=== PATIENT | female | born 1950 | race Caucasian/White ===

== ENCOUNTER 2020-09-28 09:45 | Observation (INO) | payer MEDICARE, BC ==
[2020-09-28] MEDS ORDERED: Ticagrelor 90 MG Tab PO ONE (09:50)
[2020-09-28] MEDS ORDERED: Famotidine 20 MG/2 ML SDV IVPUSH ONE (09:50)
[2020-09-28] MEDS ORDERED: Metoprolol Tartrate 5 MG/5 ML SDV IVPUSH ONE ×2 (09:50→10:35)
[2020-09-28] MEDS ORDERED: Aspirin 81 MG Tab.Chew CHEW ONE (09:50)
[2020-09-28] MEDS ORDERED: Sodium Chloride 0.9% 10 ML Syringe FLUSH PRN ×2 (09:50→11:42)
--- NOTE | 2020-09-28 09:50 | EDM.PDOC ---
ED HPI GENERAL MEDICAL PROBLEM - General Chief Complaint: Cardiovascular Problem Stated Complaint: chest pressure, irregular fast heart beat Time Seen by Provider: 09/28/20 09:50 Source of Information: Reports: Patient, Family (), Old Records ([facility] chart/EMR), Other ([facility]MR) History Limitations: Reports: No Limitations - History of Present Illness INITIAL COMMENTS - FREE TEXT/NARRATIVE: The patient was brought to the emergency room via private automobile by her for evaluation of 4/10 retrosternal chest pressure without radiation ass ociated with moderate heart flutter with symptoms starting at about 7:30 AM at rest this morning. She did take her morning medications including her Toprol- XL, however no other treatment prior to arrival. The patient denies any dizziness, orthostasis, orthopnea, diaphoresis, paresthesias, recent decreased exercise tolerance, or any other anginal-type symptoms. She has had problems with intermittent heart flutter in the past without evaluation at that time. No recent history of abdominal pain, heartburn, nausea, diarrhea, melena, gross hematochezia, or any food intolerance, including fatty foods, etc. with normal bowel movement this morning. She denies any gross hematuria, colic, or other UTI symptoms. The patient also denies any recent fever, cough, wheezing, dyspnea, etc... No recent history of decongestants, significant caffeine intake, etc., although she did take some Mucinex last night. Onset: Today, Sudden Onset Date: 09/28/20 Onset Time: 07:30 Duration: Constant Location: Reports: Chest. Denies: Head, Face, Neck, Abdomen, Back, Pelvis, Upper Extremity, Left, Upper Extremity, Right, Radiates to Quality: Reports: Pressure, Same as Previous Episode Severity: Mild Improves with: Reports: None Worsens with: Reports: None Context: Reports: Other (As above). Denies: Sick Contact, Trauma Associated Symptoms: Reports: Chest Pain. Denies: Confusion, Cough, Diaphoresis, Fever/Chills, Headaches, Loss of Appetite, Malaise, Nausea/Vomiting, Rash, Seizure, Shortness of Breath, Syncope, Weakness Treatments CENTRIFUGAL SCREEN TENDER: Reports: Other (see below) (As above) Middle Anterior Chest Pain Score (Numeric/FACES): 4 Left Upper Chest Pain Score (Numeric/FACES): 4 - Related Data Allergies Allergy/AdvReac Type Severity Reaction Status Date / Time No Known Allergies Allergy Verified 09/28/20 09:45 Home Meds: Home Meds Metoprolol Succinate [Toprol XL] 75 mg PO DAILY 02/20/14 [History] Mv,Calcium,Min/Iron/Folic/Vitk [Multi For Her Tablet] 1 each PO DAILY 02/20/14 [History] Cholecalciferol (Vitamin D3) [Vitamin D3] 1,000 units PO DAILY 06/18/16 [History] L.acidoph,Paracasei, B.lactis [Probiotic] 2 cap PO DAILY 06/18/16 [History] atorvaSTATin [Lipitor] 10 mg PO BEDTIME 06/18/16 [History] Lisinopril [Prinivil] 10 mg PO DAILY 06/19/16 [History] Calcium Carbonate [Calcium] 1,200 mg PO DAILY 07/27/18 [History] Exemestane 25 mg PO DAILY 09/28/20 [History] Past Medical History HEENT History: Reports: Allergic Rhinitis, Cataract, Impaired Vision, Other (See Below). Denies: Glaucoma, Hard of Hearing, Macular Degeneration, Otitis Media, Retinal Detachment Other HEENT History: Patient wears glasses. Seasonal allergies. Cardiovascular History: Reports: Arrhythmia, Heart Murmur, High Cholesterol, Hypertension. Denies: Afib, Aneurysm, Blood Clots/VTE/DVT, CAD, Cardiomyopathy, Heart Failure, AL, PVD, Syncope Other Cardiovascular History: Vasomotor instability. History of possible sinus tachycardia versus other type of arrhythmia on 02/20/2014. Intermittent benign functional cardiac murmur. Respiratory History: Reports: Bronchitis, Recurrent, Intubation, Previous, Pulmonary Fibrosis. Denies: Asthma, COPD, Intubation, Difficult, PE, Pneumonia, Recurrent, Pneumothorax, TB Gastrointestinal History: Reports: Colon Polyp, Other (See Below). Denies: Celiac Disease, Cholelithiasis, Chronic Constipation, Chronic Diarrhea, Diverticulosis, Fatty Liver, Fecal Incontinence, Gastritis, GERD, GI Bleed, Hepatitis, Hiatal Hernia, Inflammatory Bowel Disease, Irritable Bowel Syndrome, Jaundice, Pancreatitis, PUD Other Gastrointestinal History: Benign rectal hyperplastic colonic polyp in 2016 as below. Genitourinary History: Reports: None. Denies: Chronic Renal Insuffiency, Renal Calculus, Retention, Urinary, STD, Urinary Incontinence, UTI, Recurrent RUBBER PRESS TENDER History: Reports: Other (See Below) : 1 Para: 1 LMP (Approximate): Other (See Below) Other RUBBER PRESS TENDER History: Menopause at about age 54. Full term without complications during pregnancies or deliveries. Benign right ovarian cyst by pelvic ultrasound in October 2019 as below. Musculoskeletal History: Reports: Back Pain, Chronic, Neck Pain, Chronic, Osteoarthritis, Osteoporosis. Denies: Amputation, Arthritis, Fracture, Gout, RA, SLE Neurological History: Reports: Neuropathy, Peripheral, Other (See Below). Denies: Alzheimers Disease, Cerebral Aneurysms, Concussion, CVA, Headaches, Chronic, Head Trauma, Migraines, MS, Parkinson's, Seizure, TIA, Vertigo Other Neuro History: Possible peripheral neuropathy secondary to her medications. Psychiatric History: Reports: Anxiety, Depression. Denies: Abuse, Victim of, ADD, ADHD, Addiction, Psych Hospitalization(s), PTSD, Suicide Attempt, Suicidal Ideation Endocrine/Metabolic History: Reports: Obesity/BMI 30+, Osteopenia. Denies: Diabetes, Gestational, Diabetes, Type I, Diabetes, Type II, Diabetes Mellitus, Type 3c, Hypothyroidism, IDDM Hematologic History: Reports: None. Denies: Anemia, Blood Transfusion(s) Immunologic History: Reports: None. Denies: AIDS, HIV, SLE Oncologic (Cancer) History: Reports: Breast, Other (See Below). Denies: Basal Cell Carcinoma, Colon, Hodgkin's Lymphoma, Leukemia, Lymphoma, Malignant Melanoma, Non-Hodgkin's Lymphoma, Ovarian, Squamous Cell Carcinoma, Uterine Other Oncologic History: Right-sided estrogen positive breast cancer in 2018 with history of lumpectomy and radiation therapy as below. Dermatologic History: Reports: None. Denies: Eczema, Psoriasis - Infectious Disease History Infectious Disease History: Reports: Chicken Pox, Measles. Denies: C-Difficile, Meningitis, Mononucleosis, MRSA, Mumps, Novel Coronavirus, Pertussis (Whooping Cough), Rheumatic Fever, Rubella, Scarlet Fever, Shingles, TB, VRE - Past Surgical History Head Surgeries/Procedures: Reports: None HEENT Surgical History: Reports: Cataract Surgery, Oral Surgery, Other (See Below). Denies: Adenoidectomy, Detached Retina, Eye Surgery, Laser Surgery, LASIK, Myringotomy w Tube(s), Naso-Sinus Surgery, Tonsillectomy Other HEENT Surgeries/Procedures: Bilateral cataract surgery in 2018. [place] teeth extraction x2 in her 30s. Cardiovascular Surgical History: Reports: None. Denies: Varicose Respiratory Surgical History: Reports: None. Denies: Thoracentesis GI Surgical History: Reports: Colonoscopy, Polypectomy, Other (See Below). Denies: Appendectomy, Cholecystectomy, EGD, Hernia, Abdominal, Hernia, Inguinal, Hernia Repair/Other Other GI Surgeries/Procedures: Colonoscopy with polypectomy on 06/19/2016. Female Surgical History: Reports: Breast Biopsy, Other (See Below). Denies: Breast Reconstruction, Section, D&C, Hysterectomy (No other female tubal ligation hysterectomy), Salpingo-Oophorectomy, Tubal Ligation Other Female Surgeries/Procedures: Right breast lumpectomy with axillary dissection secondary to breast cancer in 2018 as below. Endocrine Surgical History: Reports: None. Denies: Thyroid Biopsy Neurological Surgical History: Reports: None. Denies: C-Spine, Discectomy, Laminectomy, Lumbar Spine, Sacral Spine, Spinal Fusion, Thoracic Spine, Vertebroplasty Musculoskeletal Surgical History: Reports: None. Denies: Arthroscopic Procedure, Carpal Tunnel, Ganglion Cyst, Joint Replacement, ORIF, Shoulder Surgery Oncologic Surgical History: Reports: Biopsy of Breast, Lumpectomy, Other (See Below) Other Oncologic Surgeries/Procedures: Right breast biopsy on 02/17/2018 with subsequent lumpectomy and sentinel node biopsies on 02/17/2018 and repeat lumpectomy on 03/03/2018. Dermatological Surgical History: Reports: Skin Biopsy, Other (See Below) Other Dermatological Surgeries/Procedures: Excision of benign cyst from the scalp on 09/25/2000. - Past Imaging History Past Imaging History: Reports: CAT Scan (CT of the abdomen and pelvis with IV contrast on 09/21/2019.), DEXA Scan (Last on 04/13/2020.), Mammogram (Last on 04/13/2020.), MRI (Left knee on 07/28/2018.), Ultrasound (Pelvic ultrasound on 05/28/2020, 11/28/2019, and 10/11/2019. Right breast ultrasound on 01/21/2018 and 11/03/2012.) Social & Family History - Family History HEENT: Reports: Cataract, Other (See Below). Denies: Glaucoma, Macular Degeneration, Retinal Detachment Other HEENT Family History: Mother with cataracts. Cardiac: Reports: Afib, Arrhythmia, Cardiomyopathy, Heart Failure, High Cholesterol, Hypertension, Syncope, Other (See Below). Denies: Aneurysm, Blood Clots/VTE/DVT, CAD, Heart Murmur, AL, PVD/COD Other Cardiac Family History: Father with possible atrial fibrillation with Coumadin therapy, cardiomegaly and CHF with subsequent fatal syncopal episode/? CVA at age 88. Maternal grandfather with unknown type of cardiac arrhythmia. Mother with hypertension and hyperlipidemia. Respiratory: Reports: COPD, Other (See Below). Denies: Asthma, PE, Pneumothorax, Sleep Apnea Other Respiratory Family Hisory: Father with history of COPD and tobacco use. GI: Reports: None. Denies: Celiac Disease, Cholelithiasis, Colon Polyps, GERD, GI bleed, Inflammatory Bowel Disease, Irritable Bowel Syndrome, PUD : Reports: Renal Disease/Insufficiency, Other (See Below). Denies: Dialysis, Renal Calculus Other Family History: Mother with history of renal failure. OBGYN: Reports: None. Denies: Dysfunctional uterine bleeding, Endometriosis, Fibroids, Recurrent Spontaneous Musculoskeletal: Reports: Arthritis, Gout, Other (See Below). Denies: RA, SLE Other Musculoskeletal Family History: Father with history of gout. Neurological: Reports: Alzheimers Disease, CVA, Dementia, Other (See Below) Other Neurological Family History: Mother with possible beginning organic brain syndrome. Patient denies previous history of CVA in her maternal grandfather although he did have a history of an unknown brain tumor. Dad with possible fatal CVA as above. Psychiatric: Reports: Anxiety, Depression, Suicide Attempt, Other (See Below). Denies: Abuse, Victim of, ADD, ADHD, Psych Hospitalization(s), PTSD Other Psychiatric Family History: Maternal grand niece with successful suicide in her 40s and nieces son with successful suicide in his 20s. Maternal grandfather from successful suicide in his 70s rather than fatal CVA as per medical records. Endocrine/Metabolic: Reports: Diabetes, type II, Other (See Below). Denies: Diabetes, Type I, Hypothyroidism, IDDM Other Endocrine/Metabolic Family History: Father with diabetes mellitus. Patient denies history of diabetes in her maternal aunt despite medical records. Hematologic: Reports: None. Denies: Anemia, SLE Immunologic: Reports: None. Denies: AIDS, HIV, SLE Dermatologic: Reports: None. Denies: Eczema, Psoriasis Oncologic: Reports: Brain, Breast, Skin, Other (See Below). Denies: Colon, Hodgkin's Lymphoma, Lung, Lymphoma, Metastatic, Non-Hodgkin's Lymphoma, Ovarian Other Oncologic Family History: Mother with unknown type of facial skin cancer. Mother with breast cancer at age 72. Maternal grandfather with unknown type of brain cancer as above. - Tobacco Use Tobacco Use Status *Q: Never Tobacco User Tobacco Use Within Last Twelve Months: No Used Tobacco, but Quit: No Smoking Cessation Information Provided To Patient: No Second Hand Smoke Exposure: No Second Hand Smoke Education Provided: No - Caffeine Use Caffeine Use: Reports: Coffee (3 cups/day), Tea (2 cups/week). Denies: Energy Drinks, Soda - Alcohol Use Alcohol Use History: Yes Days Per Week of Alcohol Use: 0 Number of Drinks Per Day: 1 Number of Drinks Per Day Comment: Usually wine for holidays. No previous DWIs, problems with alcohol abuse, etc.. 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 ED EXAM, GENERAL - Physical Exam Exam: See Below Exam Limited By: No Limitations General Appearance: Alert, No Apparent Distress Eye Exam: Bilateral Eye: EOMI, Normal Inspection (No nystagmus or vertigo. Patient is wearing glasses.), PERRL Ears: Normal External Exam, Normal Canal, Hearing Grossly Normal, Normal TMs Nose: Normal Inspection, Normal Mucosa, No Blood Throat/Mouth: Normal Inspection, Normal Lips, Normal Teeth, Normal Gums, Normal Oropharynx, Normal Voice, No Airway Compromise. No: Dysphagia, Inflammation, Perioral Cyanosis Head: Atraumatic, Normocephalic. No: Facial Swelling, Facial Tenderness, Sinus Tenderness Neck: Supple, Non-Tender, Full Range of Motion, Carotid Bruit (Mild bilateral carotid bruits). No: Lymphadenopathy (L), Lymphadenopathy (R), Thyromegaly Respiratory/Chest: No Respiratory Distress, No Accessory Muscle Use, Chest Non- Tender, Rales (Mild bilateral basal rales). No: Rhonchi, Wheezing, Pleural Rub, Retractions Cardiovascular: Normal Peripheral Pulses, No Edema, No Gallop, No JVD, No Murmur, No Rub, Tachycardia, Irregularly Irregular. No: Gallop/S3, Gallop/S4 Peripheral Pulses: 2+: Radial (L), Radial (R), Dorsalis Pedis (L), Dorsalis Pedis (R) GI/Abdominal: Normal Bowel Sounds, Soft, Non-Tender, No Organomegaly, No Distention, No Abnormal Bruit, No Mass, Other (Obese). No: Guarding (Female) Exam: Deferred Rectal (Female) Exam: Deferred Back Exam: Normal Inspection, Full Range of Motion. No: CVA Tenderness (L), CVA Tenderness (R), Muscle Spasm Extremities: Normal Inspection, Normal Range of Motion, Non-Tender, No Pedal Edema, Normal Capillary Refill. No: Gato's Sign Neurological: Alert, Oriented, CN II-XII Intact, Normal Cognition, Normal Gait, Normal Reflexes (Negative Babinski's), No Motor/Sensory Deficits Psychiatric: Normal Affect, Normal Mood Skin Exam: Warm, Dry, Intact, Normal Color, No Rash, Other (2 cm in length cystic lesion over her superior occipital region with no evidence of infection). No: Diaphoretic, Pallor Lymphatic: No Adenopathy #1 Interpretation EKG Date: 09/28/20 Time: 09:54 Rhythm: A-Flutter (With occasional couplets and uniform PVCs) Rate (Beats/Min): 226 [place]: Normal (Left) P-Wave: Variable QRS: Normal (0.09 seconds) ST-T: Normal QT: Normal NE/PQ Interval: Not applicable Comparison: Change From Previous EKG (New PVCs, couplets, and atrial flutter with rapid ventricular response since last EKG on 12/06/2009) EKG Interpretation Comments: 1. No acute ischemic changes 2. Atrial fibrillation/flutter with rapid ventricular response 3. PVCs, couplets #2 Interpretation EKG Date: 09/28/20 Time: 10:39 Rhythm: A-Fib Rate (Beats/Min): 128 [place]: Normal (Left) P-Wave: Variable QRS: Normal (0.08 seconds) ST-T: Normal QT: Normal NE/PQ Interval: Variable Comparison: Change From Previous EKG (Improved tachycardia since earlier EKG this morning as above) EKG Interpretation Comments: 1. No acute ischemic changes 2. Atrial fibrillation with rapid ventricular responseimproved Course - Vital Signs Last Recorded V/S: Last Vital Signs Temp 36.8 C 09/28/20 09:45 Pulse 90 09/28/20 10:47 Resp 18 09/28/20 10:27 BP 113/73 09/28/20 10:47 Pulse Ox 96 09/28/20 10:27 Vital Signs - 24 hr 09/28/20 09/28/20 09/28/20 09:45 09:50 10:00 Temperature [ 36.8 C Temporal] Pulse, Peripheral Pulse, 183 H 180 H 157 H Peripheral [ Left Pulse Oximetry] Respiratory 22 H 22 H 20 Rate Blood Pressure Blood Pressure 187/112 H 139/80 116/82 [Right Upper Arm] O2 Sat by Pulse 95 95 95 Oximetry 09/28/20 09/28/20 09/28/20 10:13 10:17 10:27 Temperature [ Temporal] Pulse, 146 H 145 H Peripheral Pulse, 147 H 148 H Peripheral [ Left Pulse Oximetry] Respiratory 16 18 Rate Blood Pressure 94/70 Blood Pressure 115/77 111/92 H [Right Upper Arm] O2 Sat by Pulse 96 96 Oximetry 09/28/20 09/28/20 09/28/20 10:37 10:42 10:47 Temperature [ Temporal] Pulse, 147 H 90 Peripheral Pulse, 93 Peripheral [ Left Pulse Oximetry] Respiratory 18 Rate Blood Pressure 111/92 H 113/73 Blood Pressure 121/76 [Right Upper Arm] O2 Sat by Pulse 96 Oximetry 09/28/20 10:57 Temperature [ Temporal] Pulse, Peripheral Pulse, 93 Peripheral [ Left Pulse Oximetry] Respiratory 18 Rate Blood Pressure Blood Pressure 127/77 [Right Upper Arm] O2 Sat by Pulse 96 Oximetry - Orders/Labs/Meds Orders: Active Orders 24 hr Category Date Time Status Cardiac Monitoring [RC] . DIRECTED Care 09/28/20 09:50 Active EKG Documentation Completion [RC] ASDIRECTED Care 09/28/20 09:50 Active EKG Documentation Completion [RC] ASDIRECTED Care 09/28/20 10:17 Ordered Oxygen Therapy, ED [RC] CONTINUOUS Care 09/28/20 09:50 Active Peripheral IV Care [RC] . DIRECTED Care 09/28/20 09:50 Active Pulse Oximetry [RC] PRN Care 09/28/20 09:50 Active Up With Assistance [RC] PFP Care 09/28/20 09:50 Active Vital Signs [RC] PFP Care 09/28/20 09:50 Active Nothing per Oral Now Diet [DIET] Diet 09/28/20 Breakfast Active Chest 1V Frontal [CR] Stat Exams 09/28/20 09:50 Ordered Sodium Chloride 0.9% [Saline Flush] Med 09/28/20 09:50 Active 10 ml FLUSH ASDIRECTED PRN Obtain Past Medical Record [OM.PC] Urgent Oth 09/28/20 09:50 Active Peripheral IV Insertion Adult [OM.PC] Stat Oth 09/28/20 09:50 Ordered Resuscitation Status Stat Resus Stat 09/28/20 09:50 Ordered Medication Orders Sodium Chloride (Saline Flush) 10 ml FLUSH ASDIRECTED PRN PRN Reason: Keep Vein Open Labs: Laboratory Tests 09/28/20 09/28/20 09/28/20 Range/Units 09:45 09:45 09:45 WBC 10.7 H (4.0-10.2) K/uL RBC 4.56 (3.77-5.09) M/uL Hgb 13.9 (11.7-15.5) g/dL Hct 42.1 (34.0-46.0) % MCV 92.3 (84.0-98.0) fL MCH 30.5 (28.2-33.3) pg MCHC 33.0 (31.7-36.0) g/dL RDW 14.4 H (11.2-14.1) % Plt Count 352 H (150-350) K/uL Neut % (Auto) 56.6 (45.0-80.0) % Lymph % (Auto) 29.9 (10.0-50.0) % [place] % (Auto) 10.7 (2.0-14.0) % Eos % (Auto) 2.6 (0.0-5.0) % Baso % (Auto) 0.2 (0.0-2.0) % Neut # (Auto) 6.06 (1.40-7.00) K/uL Lymph # (Auto) 3.20 (0.50-3.50) K/uL [place] # (Auto) 1.14 H (0.00-1.00) K/uL Eos # (Auto) 0.28 (0.00-0.50) K/uL Baso # (Auto) 0.02 (0.00-0.20) K/uL PT 9.8 (9.5-12.0) SEC INR 1.0 APTT 23.4 L (24.5-32.8) SEC D-Dimer, Quantitative 1070 H (0-400) ng/mL Sodium (136-145) mmol/L Potassium (3.5-5.1) mmol/L Chloride (98-107) mmol/L Carbon Dioxide (21.0-32.0) mmol/L BUN (7-18) mg/dL Creatinine (0.51-1.17) mg/dL Est Cr Clr Drug Dosing Estimated GFR (MDRD) mL/min Glucose (74-106) mg/dL Lactic Acid (0.4-2.0) mmol/L Uric Acid (2.6-7.2) mg/dL Calcium (8.5-10.1) mg/dL Magnesium (1.8-2.4) mg/dL Total Bilirubin (0.2-1.0) mg/dL AST (15-37) U/L ALT (12-78) U/L Alkaline Phosphatase (46-116) IU/L Creatine Kinase (26-308) U/L Creatine Kinase Index (0.0-2.5) % CK-MB (CK-2) (0.00-3.60) ng/mL Troponin I (0.000-0.056) ng/mL NT-Pro-B Natriuret Pep (0-125) pg/mL Total Protein (6.4-8.2) g/dL Albumin (3.4-5.0) g/dL TSH, Ultra Sensitive (0.358-3.740) mIU/mL 09/28/20 09/28/20 Range/Units 09:45 09:45 WBC (4.0-10.2) K/uL RBC (3.77-5.09) M/uL Hgb (11.7-15.5) g/dL Hct (34.0-46.0) % MCV (84.0-98.0) fL MCH (28.2-33.3) pg MCHC (31.7-36.0) g/dL RDW (11.2-14.1) % Plt Count (150-350) K/uL Neut % (Auto) (45.0-80.0) % Lymph % (Auto) (10.0-50.0) % [place] % (Auto) (2.0-14.0) % Eos % (Auto) (0.0-5.0) % Baso % (Auto) (0.0-2.0) % Neut # (Auto) (1.40-7.00) K/uL Lymph # (Auto) (0.50-3.50) K/uL [place] # (Auto) (0.00-1.00) K/uL Eos # (Auto) (0.00-0.50) K/uL Baso # (Auto) (0.00-0.20) K/uL PT (9.5-12.0) SEC INR APTT (24.5-32.8) SEC D-Dimer, Quantitative (0-400) ng/mL Sodium 138 (136-145) mmol/L Potassium 4.0 (3.5-5.1) mmol/L Chloride 100 (98-107) mmol/L Carbon Dioxide 23.6 (21.0-32.0) mmol/L BUN 27 H (7-18) mg/dL Creatinine 0.93 (0.51-1.17) mg/dL Est Cr Clr Drug Dosing TNP Estimated GFR (MDRD) 59 mL/min Glucose 187 H (74-106) mg/dL Lactic Acid 3.5 H (0.4-2.0) mmol/L Uric Acid 7.1 (2.6-7.2) mg/dL Calcium 9.6 (8.5-10.1) mg/dL Magnesium 2.0 (1.8-2.4) mg/dL Total Bilirubin 0.4 (0.2-1.0) mg/dL AST 18 (15-37) U/L ALT 29 (12-78) U/L Alkaline Phosphatase 107 (46-116) IU/L Creatine Kinase 93 (26-308) U/L Creatine Kinase Index 1.0 (0.0-2.5) % CK-MB (CK-2) 0.90 (0.00-3.60) ng/mL Troponin I 0.000 (0.000-0.056) ng/mL NT-Pro-B Natriuret Pep 114 (0-125) pg/mL Total Protein 8.1 (6.4-8.2) g/dL Albumin 3.7 (3.4-5.0) g/dL TSH, Ultra Sensitive 2.084 (0.358-3.740) mIU/mL Meds: Medications Generic Name Dose Route Start Last Admin Trade Name Freq PRN Reason Stop Dose Admin Sodium Chloride 10 ml 09/28/20 09:50 Saline Flush FLUSH ASDIRECTED PRN Keep Vein Open Discontinued Medications Generic Name Dose Route Start Last Admin Trade Name Freq PRN Reason Stop Dose Admin Adenosine 6 mg 09/28/20 09:51 09/28/20 09:54 Adenocard IVPUSH 09/28/20 09:52 6 mg NOW ONE Administration Adenosine 12 mg 09/28/20 09:56 09/28/20 09:58 Adenocard IVPUSH 09/28/20 09:57 12 mg NOW ONE Administration Aspirin 324 mg 09/28/20 09:50 09/28/20 10:01 Aspirin CHEW 09/28/20 09:51 324 mg ONETIME ONE Administration Digoxin 250 mcg 09/28/20 10:24 09/28/20 10:27 Lanoxin IVPUSH 09/28/20 10:25 250 mcg ONETIME ONE Administration Diltiazem HCl 20 mg 09/28/20 09:59 09/28/20 10:02 Diltiazem IVPUSH 09/28/20 10:00 20 mg ONETIME ONE Administration Famotidine 40 mg 09/28/20 09:50 09/28/20 10:07 Pepcid IVPUSH 09/28/20 09:51 40 mg ONETIME ONE Administration Metoprolol Tartrate 2.5 mg 09/28/20 09:50 09/28/20 10:17 Lopressor IVPUSH 09/28/20 09:51 2.5 mg ONETIME ONE Administration Metoprolol Tartrate 2.5 mg 09/28/20 10:35 09/28/20 10:37 Lopressor IVPUSH 09/28/20 10:36 2.5 mg ONETIME ONE Administration Metoprolol Tartrate 25 mg 09/28/20 10:43 09/28/20 10:47 Lopressor PO 09/28/20 10:44 25 mg ONETIME ONE Administration Ticagrelor 180 mg 09/28/20 09:50 09/28/20 10:06 Brilinta PO 09/28/20 09:51 180 mg ONETIME ONE Administration - Radiology Interpretation Free Text/Narrative:: environmental monitoring specialist showed initial atrial fibrillation/flutter with heart rate in the 150s to 220s with occasional PVCs and couplets initially refractory to therapy with subsequent conversion to sinus rhythm with heart rate in the 80s to 90s prior to admission. Chest x-ray, portable, shows probable mild COPD and pulmonary fibrotic changes with bilateral lower lobe atelectasis. Mild cardiomegaly and aortic valve calcification, however no evidence of CHF, pulmonary infiltrates, pneumothorax, etc. Departure - Departure Time of Disposition: 11:35 Disposition: Refer to Observation Condition: Good Clinical Impression: Atrial fibrillation and flutter, PVCs (premature ventricular contractions), Mixed anxiety depressive disorder, Hyperglycemia, D-dimer, elevated, Elevated lactic acid level Hypertension Qualifiers: Hypertension type: essential hypertension Qualified Code(s): I10 - Essential (primary) hypertension Hyperlipidemia Qualifiers: Hyperlipidemia type: unspecified Qualified Code(s): E78.5 - Hyperlipidemia, unspecified Osteoarthritis Qualifiers: Osteoarthritis location: multiple joints Osteoarthritis type: primary Qualified Code(s): M89.49 - Other hypertrophic osteoarthropathy, multiple sites Leukocytosis Qualifiers: Leukocytosis type: bandemia Qualified Code(s): D72.825 - Bandemia Sepsis Event Note (ED) - Focused Exam Vital Signs: Vital Signs Temp Pulse Pulse Resp BP BP Pulse Ox 09/28/20 10:47 90 113/73 09/28/20 10:37 147 H 111/92 H 09/28/20 10:27 145 H 148 H 18 111/92 H 96 09/28/20 10:17 146 H 94/70 09/28/20 10:13 147 H 16 115/77 96 09/28/20 10:00 157 H 20 116/82 95 09/28/20 09:50 180 H 22 H 139/80 95 09/28/20 09:45 36.8 C 183 H 22 H 187/112 H 95 - Problem List & Annotations (1) Atrial fibrillation and flutter SNOMED Code(s): 007728353 Code(s): I48.91 - UNSPECIFIED ATRIAL FIBRILLATION; I48.92 - UNSPECIFIED ATRIAL FLUTTER Status: Acute Priority: High Current Visit: Yes Onset Date: 09/28/20 Annotation/Comment:: Significantly refractory atrial fibrillation/flutter despite patient taking 75 mg of Toprol-XL earlier this morning. Note aggressive treatment with IV adenosine, IV diltiazem, IV Lopressor, and IV digoxin with eventual conversion to normal sinus rhythm. Chest pain likely secondary to her atrial fibrillation/flutter, however chest pain protocol was initiated immediately upon patient's arrival to this facility. No chest pain at time of admission. Note D-dimer elevation as below. Patient does have a history of distant sinus tachycardia, however has been having recurrent episodes of heart flutter, including 2 episodes in the past year without physician evaluation at that time. Initiate standard rule out AL orders. Echocardiogram to be conducted on an outpatient basis in this facility next week with consideration of Cardiolite stress test with me in this facility also next week. Cardiology consultation depending on her clinical course. Secondary to D-dimer elevation patient will be given the VTE dose of subcu Lovenox on admission, however delaying initiation of Eliquis for now until echocardiogram results can be obtained as above. Further medication adjustments during this hospitalization, including initiation of additional oral diltiazem later this afternoon. Continue to observe her blood pressures closely with somewhat low blood pressures in the emergency room, which were not symptomatic. (2) D-dimer, elevated SNOMED Code(s): 232511508 Code(s): R79.89 - OTHER SPECIFIED ABNORMAL FINDINGS OF BLOOD CHEMISTRY Status: Acute Priority: High Current Visit: Yes Onset Date: 09/28/20 Annotation/Comment:: CTA of the chest is to be conducted shortly after admission with venous Doppler studies of the lower extremities later this afternoon. No direct clinical evidence of DVT or PE. Subcu Lovenox will be initiated as above. (3) Elevated lactic acid level SNOMED Code(s): 0733944 Code(s): R79.89 - OTHER SPECIFIED ABNORMAL FINDINGS OF BLOOD CHEMISTRY Status: Acute Priority: High Current Visit: Yes Onset Date: 09/28/20 Annotation/Comment:: Only minimal leukocytosis likely secondary to stress reaction with no fever or evidence of infection. Patient started on a 1 L IV b olus of lactated Ringer's. Blood cultures and antibiotic therapy are not initiated at this time. Lactic acid level will be repeated with next set of cardiac enzymes. No clinical evidence of sepsis. (4) Hyperglycemia SNOMED Code(s): 31576059 Code(s): R73.9 - HYPERGLYCEMIA, UNSPECIFIED Status: Acute Priority: Medium Current Visit: Yes Onset Date: 09/28/20 Annotation/Comment:: Nonfasting hyperglycemia this morning this patient having already had breakfast. Glycosylated hemoglobin in the a.m. with no previous history of diabetes (5) Hyperlipidemia SNOMED Code(s): 70008547 Code(s): E78.5 - HYPERLIPIDEMIA, UNSPECIFIED Status: Chronic Priority: Medium Current Visit: Yes Annotation/Comment:: Currently under therapy. Weight loss in moderation is advisable. Lipid panel in the a.m. Qualifiers: Hyperlipidemia type: unspecified Qualified Code(s): E78.5 - Hyperlipidemia, unspecified (6) Hypertension SNOMED Code(s): 73339227 Code(s): I10 - ESSENTIAL (PRIMARY) HYPERTENSION Status: Chronic Priority: Medium Current Visit: Yes Annotation/Comment:: As above Qualifiers: Hypertension type: essential hypertension Qualified Code(s): I10 - Essential (primary) hypertension (7) Leukocytosis SNOMED Code(s): 846592809, 864183525 Code(s): D72.829 - ELEVATED WHITE BLOOD CELL COUNT, UNSPECIFIED Status: Acute Priority: Medium Current Visit: Yes Onset Date: 09/28/20 Annotation/Comment:: As above Qualifiers: Leukocytosis type: bandemia Qualified Code(s): D72.825 - Bandemia (8) Mixed anxiety depressive disorder SNOMED Code(s): 766313075 Code(s): F41.8 - OTHER SPECIFIED ANXIETY DISORDERS Status: Chronic Priority: Medium Current Visit: Yes Annotation/Comment:: Stable by patient history (9) Osteoarthritis SNOMED Code(s): 453386995 Code(s): M19.90 - UNSPECIFIED OSTEOARTHRITIS, UNSPECIFIED SITE Status: Chronic Priority: Medium Current Visit: Yes Annotation/Comment:: Stable by patient history. Qualifiers: Osteoarthritis location: multiple joints Osteoarthritis type: primary Qualified Code(s): M89.49 - Other hypertrophic osteoarthropathy, multiple sites (10) PVCs (premature ventricular contractions) SNOMED Code(s): 55003502 Code(s): I49.3 - VENTRICULAR PREMATURE DEPOLARIZATION Status: Acute Priority: High Current Visit: Yes Onset Date: 09/28/20 Annotation/Comment:: Occasional couplets with mostly uniform PVCs initially, however no evidence of recurrence after conversion to normal sinus rhythm. Continue to observe closely. Consider event monitor depending on her clinical course. - Problem List Review Problem List Initiated/Reviewed/Updated: Yes - My Orders Last 24 Hours: My Active Orders 09/28/20 Breakfast Nothing per Oral Now Diet [DIET] 09/28/20 09:50 Cardiac Monitoring [RC] . DIRECTED EKG Documentation Completion [RC] ASDIRECTED Oxygen Therapy, ED [RC] CONTINUOUS Peripheral IV Care [RC] . DIRECTED Pulse Oximetry [RC] PRN Up With Assistance [RC] PFP Vital Signs [RC] PFP Chest 1V Frontal [CR] Stat Sodium Chloride 0.9% [Saline Flush] 10 ml FLUSH ASDIRECTED PRN Obtain Past Medical Record [OM.PC] Urgent Peripheral IV Insertion Adult [OM.PC] Stat Resuscitation Status Stat 09/28/20 10:17 EKG Documentation Completion [RC] ASDIRECTED - Assessment/Plan Admission H&P: Please use this note as an admission H&P Last 24 Hours: My Active Orders 09/28/20 Breakfast Nothing per Oral Now Diet [DIET] 09/28/20 09:50 Cardiac Monitoring [RC] . DIRECTED EKG Documentation Completion [RC] ASDIRECTED Oxygen Therapy, ED [RC] CONTINUOUS Peripheral IV Care [RC] . DIRECTED Pulse Oximetry [RC] PRN Up With Assistance [RC] PFP Vital Signs [RC] PFP Chest 1V Frontal [CR] Stat Sodium Chloride 0.9% [Saline Flush] 10 ml FLUSH ASDIRECTED PRN Obtain Past Medical Record [OM.PC] Urgent Peripheral IV Insertion Adult [OM.PC] Stat Resuscitation Status Stat 09/28/20 10:17 EKG Documentation Completion [RC] ASDIRECTED Assessment:: As above. Plan: As above. Extensive precautions were given to the patient and her , who are in agreement with the treatment plan. The patient's condition is stable enough for observation status and general supervision. [facility] physician assumes care in the a.m.
[2020-09-28] MEDS ORDERED: Adenosine 6 MG/2 ML SDV IVPUSH ONE ×2 (09:51→09:56)
[2020-09-28] MEDS ORDERED: Diltiazem 25 MG/5 ML SDV IVPUSH ONE (09:59)
[2020-09-28 10:14] LABS: PTT,PARTIAL THROMBOPLSTIN TIME 23.4 SEC (24.5-32.8)
[2020-09-28] MEDS ORDERED: Digoxin 500 MCG/2 ML Amp IVPUSH ONE (10:24)
[2020-09-28] MEDS ORDERED: Metoprolol Tartrate 50 MG Tab PO ONE (10:43)
[2020-09-28 10:50] LABS: CHLORIDE,CL 100 mmol/L (98-107); SODIUM,NA 138 mmol/L (136-145)
[2020-09-28] MEDS ORDERED: Lactated Ringers 1,000 ML IV ONE (11:25)
[2020-09-28] MEDS ORDERED: Temazepam 15 MG Cap PO PRN (11:42)
[2020-09-28] MEDS ORDERED: Iopamidol 755 Mg/ML 100 ML Bottle IVPUSH STA (11:44)
[2020-09-28] MEDS ORDERED: Iopamidol 755 Mg/ML 100 ML Bottle ONE (11:52)
[2020-09-28] MEDS ORDERED: Acetaminophen 325 MG Tab PO PRN (12:00)
[2020-09-28] MEDS: Enoxaparin 100 MG/1 ML Syringe SUBCUT SCH (14:13)
[2020-09-28] MEDS: Lactated Ringers 1,000 ML IV SCH (18:31)
[2020-09-28] MEDS: atorvaSTATin 10 MG Tab PO SCH (19:47)
[2020-09-29] MEDS: Lactated Ringers 1,000 ML IV SCH (04:09)
[2020-09-29] MEDS: Calcium Carbonate 750 MG Tab.Chew PO SCH (07:42)
[2020-09-29] MEDS: Lisinopril 10 MG Tab PO SCH (07:43)
[2020-09-29] MEDS: Cholecalciferol (Vitamin D3) 25 MCG Tab PO SCH (07:44)
[2020-09-29] MEDS: Metoprolol Succinate 50 MG Tab.ER PO SCH (07:44)
[2020-09-29 08:21] LABS: HEMOGLOBIN A1C 6.6 % (4.3-5.7)
[2020-09-29 08:31] LABS: CHLORIDE,CL 102 mmol/L (98-107); SODIUM,NA 139 mmol/L (136-145)
[2020-09-29] MEDS: EXEMESTANE 25 MG PO SCH (08:48)
[2020-09-29] MEDS ORDERED: Mineral Oil/Petrolatum/Phenylephrine/Shark Liver Oil Oint 57 GM Tube RECTAL PRN (09:16)
[2020-09-29] MEDS: Enoxaparin 100 MG/1 ML Syringe SUBCUT SCH (11:59)
[2020-09-29] MEDS ORDERED: Metoprolol Succinate 25 MG Tab.ER PO ONE (13:21)
--- NOTE | 2020-09-29 14:03 | PCM.PN ---
- General Info Date of Service: 09/29/20 Admission Dx/Problem (Free Text): Afib/RVR Subjective Update: Patient feels good today. No new complaints. No chest discomfort/palpitations Functional Status: Reports: Pain Controlled, Tolerating Diet, Ambulating, Urinating. Denies: New Symptoms - Review of Systems General: Reports: No Symptoms HEENT: Reports: No Symptoms Pulmonary: Reports: No Symptoms Cardiovascular: Reports: No Symptoms Gastrointestinal: Reports: No Symptoms Genitourinary: Reports: No Symptoms Musculoskeletal: Reports: Other (no acute changes from baseline) Skin: Reports: No Symptoms Neurological: Reports: No Symptoms Psychiatric: Reports: No Symptoms - Patient Data Vitals - Most Recent: Last Vital Signs Temp 36.7 C 09/29/20 12:00 Pulse 90 09/29/20 12:00 Resp 20 09/29/20 12:00 BP 167/80 H 09/29/20 12:00 Pulse Ox 95 09/29/20 12:00 Weight - Most Recent: 90.265 kg I&O - Last 24 Hours: Intake & Output 09/28/20 09/29/20 09/29/20 22:59 06:59 14:59 Intake Total 472 1540 Output Total 3730 691 1887 Balance -953 -250 240 Lab Results Last 24 Hours: Laboratory Results - last 24 hr 09/28/20 09/28/20 09/28/20 Range/Units 13:53 13:53 19:40 WBC (4.0-10.2) K/uL RBC (3.77-5.09) M/uL Hgb (11.7-15.5) g/dL Hct (34.0-46.0) % MCV (84.0-98.0) fL MCH (28.2-33.3) pg MCHC (31.7-36.0) g/dL RDW (11.2-14.1) % Plt Count (150-350) K/uL Neut % (Auto) (45.0-80.0) % Lymph % (Auto) (10.0-50.0) % [place] % (Auto) (2.0-14.0) % Eos % (Auto) (0.0-5.0) % Baso % (Auto) (0.0-2.0) % Neut # (Auto) (1.40-7.00) K/uL Lymph # (Auto) (0.50-3.50) K/uL [place] # (Auto) (0.00-1.00) K/uL Eos # (Auto) (0.00-0.50) K/uL Baso # (Auto) (0.00-0.20) K/uL D-Dimer, Quantitative (0-400) ng/mL Sodium (136-145) mmol/L Potassium (3.5-5.1) mmol/L Chloride (98-107) mmol/L Carbon Dioxide (21.0-32.0) mmol/L BUN (7-18) mg/dL Creatinine (0.51-1.17) mg/dL Est Cr Clr Drug Dosing mL/min Estimated GFR (MDRD) mL/min Glucose (74-106) mg/dL Hemoglobin A1c (4.3-5.7) % Lactic Acid 2.1 H (0.4-2.0) mmol/L Calcium (8.5-10.1) mg/dL Total Bilirubin (0.2-1.0) mg/dL AST (15-37) U/L ALT (12-78) U/L Alkaline Phosphatase (46-116) IU/L Creatine Kinase 86 90 (26-308) U/L Creatine Kinase Index 0.9 0.8 (0.0-2.5) % CK-MB (CK-2) 0.80 0.70 (0.00-3.60) ng/mL Troponin I 0.011 0.007 (0.000-0.056) ng/mL NT-Pro-B Natriuret Pep (0-125) pg/mL Total Protein (6.4-8.2) g/dL Albumin (3.4-5.0) g/dL Triglycerides (30-150) mg/dL Cholesterol (100-200) mg/dL LDL Cholesterol, Calc (0-100) mg/dL HDL Cholesterol (40-60) mg/dL 09/28/20 09/29/20 09/29/20 Range/Units 19:40 07:30 07:30 WBC 10.7 H (4.0-10.2) K/uL RBC 4.34 (3.77-5.09) M/uL Hgb 13.2 (11.7-15.5) g/dL Hct 40.3 (34.0-46.0) % MCV 92.9 (84.0-98.0) fL MCH 30.4 (28.2-33.3) pg MCHC 32.8 (31.7-36.0) g/dL RDW 14.3 H (11.2-14.1) % Plt Count 328 (150-350) K/uL Neut % (Auto) 74.5 (45.0-80.0) % Lymph % (Auto) 16.5 (10.0-50.0) % [place] % (Auto) 7.7 (2.0-14.0) % Eos % (Auto) 0.9 (0.0-5.0) % Baso % (Auto) 0.4 (0.0-2.0) % Neut # (Auto) 7.99 H (1.40-7.00) K/uL Lymph # (Auto) 1.77 (0.50-3.50) K/uL [place] # (Auto) 0.83 (0.00-1.00) K/uL Eos # (Auto) 0.10 (0.00-0.50) K/uL Baso # (Auto) 0.04 (0.00-0.20) K/uL D-Dimer, Quantitative 196 (0-400) ng/mL Sodium (136-145) mmol/L Potassium (3.5-5.1) mmol/L Chloride (98-107) mmol/L Carbon Dioxide (21.0-32.0) mmol/L BUN (7-18) mg/dL Creatinine (0.51-1.17) mg/dL Est Cr Clr Drug Dosing mL/min Estimated GFR (MDRD) mL/min Glucose (74-106) mg/dL Hemoglobin A1c (4.3-5.7) % Lactic Acid 2.2 H (0.4-2.0) mmol/L Calcium (8.5-10.1) mg/dL Total Bilirubin (0.2-1.0) mg/dL AST (15-37) U/L ALT (12-78) U/L Alkaline Phosphatase (46-116) IU/L Creatine Kinase (26-308) U/L Creatine Kinase Index (0.0-2.5) % CK-MB (CK-2) (0.00-3.60) ng/mL Troponin I (0.000-0.056) ng/mL NT-Pro-B Natriuret Pep (0-125) pg/mL Total Protein (6.4-8.2) g/dL Albumin (3.4-5.0) g/dL Triglycerides (30-150) mg/dL Cholesterol (100-200) mg/dL LDL Cholesterol, Calc (0-100) mg/dL HDL Cholesterol (40-60) mg/dL 09/29/20 09/29/20 09/29/20 Range/Units 07:30 07:30 07:30 WBC (4.0-10.2) K/uL RBC (3.77-5.09) M/uL Hgb (11.7-15.5) g/dL Hct (34.0-46.0) % MCV (84.0-98.0) fL MCH (28.2-33.3) pg MCHC (31.7-36.0) g/dL RDW (11.2-14.1) % Plt Count (150-350) K/uL Neut % (Auto) (45.0-80.0) % Lymph % (Auto) (10.0-50.0) % [place] % (Auto) (2.0-14.0) % Eos % (Auto) (0.0-5.0) % Baso % (Auto) (0.0-2.0) % Neut # (Auto) (1.40-7.00) K/uL Lymph # (Auto) (0.50-3.50) K/uL [place] # (Auto) (0.00-1.00) K/uL Eos # (Auto) (0.00-0.50) K/uL Baso # (Auto) (0.00-0.20) K/uL D-Dimer, Quantitative (0-400) ng/mL Sodium 139 (136-145) mmol/L Potassium 4.2 (3.5-5.1) mmol/L Chloride 102 (98-107) mmol/L Carbon Dioxide 26.0 (21.0-32.0) mmol/L BUN 16 (7-18) mg/dL Creatinine 0.77 (0.51-1.17) mg/dL Est Cr Clr Drug Dosing 48.13 mL/min Estimated GFR (MDRD) > 60 mL/min Glucose 130 H (74-106) mg/dL Hemoglobin A1c 6.6 H (4.3-5.7) % Lactic Acid 2.9 H (0.4-2.0) mmol/L Calcium 9.2 (8.5-10.1) mg/dL Total Bilirubin 0.5 (0.2-1.0) mg/dL AST 18 (15-37) U/L ALT 26 (12-78) U/L Alkaline Phosphatase 100 (46-116) IU/L Creatine Kinase 117 (26-308) U/L Creatine Kinase Index 0.9 (0.0-2.5) % CK-MB (CK-2) 1.00 (0.00-3.60) ng/mL Troponin I 0.000 (0.000-0.056) ng/mL NT-Pro-B Natriuret Pep 438 H (0-125) pg/mL Total Protein 7.7 (6.4-8.2) g/dL Albumin 3.6 (3.4-5.0) g/dL Triglycerides 121 (30-150) mg/dL Cholesterol 136 (100-200) mg/dL LDL Cholesterol, Calc 65 (0-100) mg/dL HDL Cholesterol 47 (40-60) mg/dL Crista Results Last 24 Hours: Microbiology 09/28/20 12:15 Urine Culture - Preliminary Urine, Clean Catch MIXED POSITIVE HILARY DAY 1 09/28/20 18:42 Stool Occult Blood (CRISTA) - Final Stool / Feces NEGATIVE OCCULT BLOOD REFERENCE RANGE: NEGATIVE Med Orders - Current: Current Medications Acetaminophen (Tylenol) 650 mg PO Q4H PRN PRN Reason: Pain Atorvastatin Calcium (Lipitor) 10 mg PO BEDTIME [facility] Last Admin: 09/28/20 19:47 Dose: 10 mg Documented by: Calcium Carbonate/Glycine (Tums Extra Strength) 1,500 mg PO DAILY [facility] Last Admin: 09/29/20 07:42 Dose: 1,500 mg Documented by: Cholecalciferol (Vitamin D3) 25 mcg PO DAILY [facility] Last Admin: 09/29/20 07:44 Dose: 25 mcg Documented by: Enoxaparin Sodium (Lovenox) 90 mg SUBCUT Q24H [facility] Last Admin: 09/29/20 11:59 Dose: 90 mg Documented by: Lactated Ringer's (Ringers, Lactated) 1,000 mls @ 100 mls/hr IV ASDIRECTED [facility] Last Admin: 09/29/20 04:09 Dose: 100 mls/hr Documented by: Lisinopril (Prinivil) 10 mg PO DAILY [facility] Last Admin: 09/29/20 07:43 Dose: 10 mg Documented by: Metoprolol Succinate (Toprol Xl) 75 mg PO DAILY [facility] Last Admin: 09/29/20 07:44 Dose: 75 mg Documented by: Metoprolol Succinate (Toprol Xl) 25 mg PO DAILY [facility] Exemestane 25 Mg * (*Own Med) 0 mg PO DAILY [facility] Last Admin: 09/29/20 08:48 Dose: 25 mg Documented by: Phenyleph/Shark Oil/Min Oil/Petrol (Preparation H Oint) 0 gm RECTAL ASDIRECTED PRN PRN Reason: Hemorrhoids Last Admin: 09/29/20 09:39 Dose: 1 applic Documented by: Sodium Chloride (Saline Flush) 10 ml FLUSH ASDIRECTED PRN PRN Reason: Keep Vein Open Sodium Chloride (Saline Flush) 10 ml FLUSH Q12HR PRN PRN Reason: Keep Vein Open Temazepam (Restoril) 15 mg PO BEDTIME PRN PRN Reason: Insomnia Discontinued Medications Adenosine (Adenocard) 6 mg IVPUSH NOW ONE Stop: 09/28/20 09:52 Last Admin: 09/28/20 09:54 Dose: 6 mg Documented by: Adenosine (Adenocard) 12 mg IVPUSH NOW ONE Stop: 09/28/20 09:57 Last Admin: 09/28/20 09:58 Dose: 12 mg Documented by: Aspirin (Aspirin) 324 mg CHEW ONETIME ONE Stop: 09/28/20 09:51 Last Admin: 09/28/20 10:01 Dose: 324 mg Documented by: Digoxin (Lanoxin) 250 mcg IVPUSH ONETIME ONE Stop: 09/28/20 10:25 Last Admin: 09/28/20 10:27 Dose: 250 mcg Documented by: Diltiazem HCl (Diltiazem) 20 mg IVPUSH ONETIME ONE Stop: 09/28/20 10:00 Last Admin: 09/28/20 10:02 Dose: 20 mg Documented by: Famotidine (Pepcid) 40 mg IVPUSH ONETIME ONE Stop: 09/28/20 09:51 Last Admin: 09/28/20 10:07 Dose: 40 mg Documented by: Lactated Ringer's (Ringers, Lactated) 1,000 mls @ 999 mls/hr IV .BOLUS ONE Stop: 09/28/20 12:25 Last Admin: 09/28/20 11:29 Dose: 999 mls/hr Documented by: Iopamidol (Isovue-370 (76%)) 100 ml IVPUSH ONETIME STA Stop: 09/28/20 11:45 Last Admin: 09/28/20 12:11 Dose: 100 ml Documented by: Iopamidol (Isovue-370 (76%)) Confirm Administered Dose 100 ml .ROUTE .STK-MED ONE Stop: 09/28/20 11:53 Last Admin: 09/28/20 11:30 Dose: Not Given Documented by: Metoprolol Succinate (Toprol Xl) 25 mg PO ONETIME ONE Stop: 09/29/20 13:22 Metoprolol Tartrate (Lopressor) 2.5 mg IVPUSH ONETIME ONE Stop: 09/28/20 09:51 Last Admin: 09/28/20 10:17 Dose: 2.5 mg Documented by: Metoprolol Tartrate (Lopressor) 2.5 mg IVPUSH ONETIME ONE Stop: 09/28/20 10:36 Last Admin: 09/28/20 10:37 Dose: 2.5 mg Documented by: Metoprolol Tartrate (Lopressor) 25 mg PO ONETIME ONE Stop: 09/28/20 10:44 Last Admin: 09/28/20 10:47 Dose: 25 mg Documented by: Ticagrelor (Brilinta) 180 mg PO ONETIME ONE Stop: 09/28/20 09:51 Last Admin: 09/28/20 10:06 Dose: 180 mg Documented by: - Exam Quality Assessment: DVT Prophylaxis General: Alert, Oriented, Cooperative, No Acute Distress HEENT: Pupils Equal, Pupils Reactive, EOMI, Mucous Membr. Moist/[place] Neck: Supple Lungs: Clear to Auscultation, Normal Respiratory Effort Cardiovascular: Regular Rate, Regular Rhythm GI/Abdominal Exam: Normal Bowel Sounds, Soft, Non-Tender (Female) Exam: Deferred Back Exam: No: Muscle Spasm Extremities: Normal Inspection, Normal Capillary Refill Skin: Warm, Dry, Intact Neurological: No New Focal Deficit Psy/Mental Status: Alert, Normal Affect, Normal Mood #1 Interpretation EKG Date: 09/29/20 Time: 08:31 Rhythm: NSR Rate (Beats/Min): 84 [place]: Normal P-Wave: Present QRS: Normal ST-T: Other (no obvious ischemia noted) QT: Normal Comparison: Change From Previous EKG (previous EKG Afib) Sepsis Event Note - Evaluation Sepsis Screening Result: No Definite Risk - Focused Exam Vital Signs: Vital Signs Temp Pulse Pulse Resp BP BP Pulse Ox 09/29/20 12:00 36.7 C 90 20 167/80 H 95 09/29/20 11:43 09/29/20 07:44 90 148/94 H 09/29/20 07:43 148/94 H 09/29/20 07:30 36.7 C 90 20 148/94 H 96 09/29/20 04:00 36.4 C 86 16 132/77 96 Pulse Ox 09/29/20 12:00 09/29/20 11:43 95 09/29/20 07:44 09/29/20 07:43 09/29/20 07:30 09/29/20 04:00 - Problem List & Annotations (1) Atrial fibrillation and flutter SNOMED Code(s): 687388205 Code(s): I48.91 - UNSPECIFIED ATRIAL FIBRILLATION; I48.92 - UNSPECIFIED ATRIAL FLUTTER Status: Acute Priority: High Current Visit: Yes Onset Date: 09/28/20 Annotation/Comment:: Patient currently in NSR and symptom-free. It has been noted however that her heart rate increases to 120s/130s when she gets up to ambulate. Significantly refractory atrial fibrillation/flutter despite patient taking 75 mg of Toprol-XL earlier this morning. Note aggressive treatment in ER with IV adenosine, IV diltiazem, IV Lopressor, and IV digoxin with eventual conversion to normal sinus rhythm. Chest pain likely secondary to her atrial fibrillation/flutter, however chest pain protocol was initiated immediately upon patient's arrival to this facility. No chest pain at time of admission. Note D-dimer elevation as below with subsequent negative chest CTA. Patient does have a history of distant sinus tachycardia, however has been having recurrent episodes of heart flutter, including 2 episodes in the past year without physician evaluation at that time. Initiate standard rule out OR orders. Echocardiogram to be conducted on an outpatient basis in this facility next week with consideration of Cardiolite stress test with me in this facility also next week. Secondary to D-dimer elevation patient will be given the VTE dose of subcu Lovenox on admission, however delaying initiation of Eliquis for now until echocardiogram results can be obtained as above. Initiation of additional oral diltiazem yesterday. Recommended by [facility]/ to increase Toprol-XL to 100mg daily. Continue to observe her blood pressures closely with somewhat low blood pressures in the emergency room, which were not symptomatic. (2) D-dimer, elevated SNOMED Code(s): 462809568 Code(s): R79.89 - OTHER SPECIFIED ABNORMAL FINDINGS OF BLOOD CHEMISTRY Status: Acute Priority: High Current Visit: Yes Onset Date: 09/28/20 Annotation/Comment:: CTA of the chest negative for PE/other acute changes. No direct clinical evidence of DVT or PE. Subcu Lovenox will be initiated as above. (3) Elevated lactic acid level SNOMED Code(s): 3264620 Code(s): R79.89 - OTHER SPECIFIED ABNORMAL FINDINGS OF BLOOD CHEMISTRY Status: Acute Priority: High Current Visit: Yes Onset Date: 09/28/20 Annotation/Comment:: No clinical evidence of sepsis. Lactic acid remains elevated at 2.9 today. Recheck in AM (4) Hyperglycemia SNOMED Code(s): 37665295 Code(s): R73.9 - HYPERGLYCEMIA, UNSPECIFIED Status: Acute Priority: Medium Current Visit: Yes Onset Date: 09/28/20 Annotation/Comment:: Glycosylated hemoglobin elevated at 6.6 (5) Leukocytosis SNOMED Code(s): 652330735, 954093467 Code(s): D72.829 - ELEVATED WHITE BLOOD CELL COUNT, UNSPECIFIED Status: Acute Priority: Medium Current Visit: Yes Onset Date: 09/28/20 Qualifiers: Leukocytosis type: bandemia Qualified Code(s): D72.825 - Bandemia Annotation/Comment:: Minimal elevation. No evidence of infection at this time. (6) PVCs (premature ventricular contractions) SNOMED Code(s): 72107823 Code(s): I49.3 - VENTRICULAR PREMATURE DEPOLARIZATION Status: Acute Priority: High Current Visit: Yes Onset Date: 09/28/20 Annotation/Comment:: Occasional couplets with mostly uniform PVCs initially, however no evidence of recurrence after conversion to normal sinus rhythm. Continue to observe closely. Consider event monitor depending on her clinical course. (7) Hyperlipidemia SNOMED Code(s): 87644995 Code(s): E78.5 - HYPERLIPIDEMIA, UNSPECIFIED Status: Chronic Priority: Medium Current Visit: Yes Qualifiers: Hyperlipidemia type: unspecified Qualified Code(s): E78.5 - Hyperlipidemia, unspecified Annotation/Comment:: Currently under therapy. Weight loss in moderation is advisable. Lipid panel today shows levels within good range. (8) Hypertension SNOMED Code(s): 70283723 Code(s): I10 - ESSENTIAL (PRIMARY) HYPERTENSION Status: Chronic Priority: Medium Current Visit: Yes Qualifiers: Hypertension type: essential hypertension Qualified Code(s): I10 - Essential (primary) hypertension Annotation/Comment:: As above (9) Mixed anxiety depressive disorder SNOMED Code(s): 863673234 Code(s): F41.8 - OTHER SPECIFIED ANXIETY DISORDERS Status: Chronic Priority: Medium Current Visit: Yes Annotation/Comment:: Stable by patient history (10) Osteoarthritis SNOMED Code(s): 031095020 Code(s): M19.90 - UNSPECIFIED OSTEOARTHRITIS, UNSPECIFIED SITE Status: Chronic Priority: Medium Current Visit: Yes Qualifiers: Osteoarthritis location: multiple joints Osteoarthritis type: primary Qualified Code(s): M89.49 - Other hypertrophic osteoarthropathy, multiple sites Annotation/Comment:: Stable by patient history. - Problem List Review Problem List Initiated/Reviewed/Updated: Yes - My Orders Last 24 Hours: My Active Orders 09/29/20 09:16 MO/Pet,Wh/Phenylephrine/Shk Lv [Preparation H Oint] 0 gm RECTAL ASDIRECTED PRN 09/30/20 08:00 Metoprolol Succinate [Toprol XL] 25 mg PO DAILY - Assessment Assessment:: as above - Plan Plan:: as above. Continue telemetry and see if heart rate with activity improves with extra dose of Toprol XL. Recheck lactic acid in AM. Anticipate discharge tomorrow if patient continues to do well.
[2020-09-29] MEDS: atorvaSTATin 10 MG Tab PO SCH (18:59)
[2020-09-30] MEDS: EXEMESTANE 25 MG PO SCH (07:47)
[2020-09-30] MEDS: Calcium Carbonate 750 MG Tab.Chew PO SCH (07:48)
[2020-09-30] MEDS: Cholecalciferol (Vitamin D3) 25 MCG Tab PO SCH (07:48)
[2020-09-30] MEDS: Lisinopril 10 MG Tab PO SCH (07:51)
[2020-09-30] MEDS: Metoprolol Succinate 50 MG Tab.ER PO SCH (07:53)
[2020-09-30] MEDS ORDERED: Metoprolol Succinate 25 MG Tab.ER PO SCH (08:00)
[2020-09-30 08:34] LABS: CHLORIDE,CL 102 mmol/L (98-107); SODIUM,NA 137 mmol/L (136-145)
[2020-09-30] MEDS: Enoxaparin 100 MG/1 ML Syringe SUBCUT SCH (11:58)
--- NOTE | 2020-09-30 12:08 | PCM.DCSUM1 ---
Discharge Summary - Hospital Course Brief History: Admitted to observation due to prolonged episode of afib with RVR, elevated lactic acid, and r/o [place] protocol. Diagnosis: Stroke: No - Discharge Data Discharge Date: 09/30/20 Discharge Disposition: Home, Self-Care 01 Condition: Good - Referral to Home Health Primary Care Physician: PCP Unknown - Discharge Diagnosis/Problem(s) (1) Atrial fibrillation and flutter SNOMED Code(s): 551427752 ICD Code: I48.91 - UNSPECIFIED ATRIAL FIBRILLATION; I48.92 - UNSPECIFIED ATRIAL FLUTTER Status: Acute Priority: High Current Visit: Yes Onset Date: 09/28/20 Problem Details: Patient currently in NSR and symptom-free. It was noted however that her heart rate increased to 120s/130s when she was up to ambulate. This has improved since the addition of Cardizem and increased dose of Toprol XL Hx: Significantly refractory atrial fibrillation/flutter despite patient taking 75 mg of Toprol-XL earlier this morning. Note aggressive treatment in ER with IV adenosine, IV diltiazem, IV Lopressor, and IV digoxin with eventual conversion to normal sinus rhythm. Chest pain likely secondary to her atrial fibrillation/flutter, however chest pain protocol was initiated immediately upon patient's arrival to this facility. No chest pain at time of admission. Note D-dimer elevation as below with subsequent negative chest CTA. Patient does have a history of distant sinus tachycardia, however has been having recurrent episodes of heart flutter, including 2 episodes in the past year without physician evaluation at that time. Initiated standard rule out [place] orders. Unremarkable troponins. Echocardiogram to be conducted on an outpatient basis in this facility next week with consideration of Cardiolite stress test with me in this facility also next week. Secondary to D-dimer elevation patient given the VTE dose of subcu Lovenox on admission, however delaying initiation of Eliquis for now until echocardiogram results can be obtained as above. Initiation of additional oral diltiazem. Recommended by [facility]/ to increase Toprol-XL to 100mg daily. Blood pressures stable. (2) D-dimer, elevated SNOMED Code(s): 517058760 ICD Code: R79.89 - OTHER SPECIFIED ABNORMAL FINDINGS OF BLOOD CHEMISTRY Status: Acute Priority: High Current Visit: Yes Onset Date: 09/28/20 Problem Details: CTA of the chest negative for PE/other acute changes. No direct clinical evidence of DVT or PE. Subcu Lovenox will be initiated as above. (3) Elevated lactic acid level SNOMED Code(s): 6013078 ICD Code: R79.89 - OTHER SPECIFIED ABNORMAL FINDINGS OF BLOOD CHEMISTRY Status: Acute Priority: High Current Visit: Yes Onset Date: 09/28/20 Problem Details: No clinical evidence of sepsis. Lactic acid remains elevated at 2.9 yesterday. Today 2.1 (4) Hyperglycemia SNOMED Code(s): 01845961 ICD Code: R73.9 - HYPERGLYCEMIA, UNSPECIFIED Status: Acute Priority: Medium Current Visit: Yes Onset Date: 09/28/20 Problem Details: Glycosylated hemoglobin elevated at 6.6 Long conversation with patient today discussing lower carb diet/other dietary interventions to reduce blood sugars. May need to consider oral agent if this continues to be problematic. (5) Leukocytosis SNOMED Code(s): 262670766, 547031648 ICD Code: D72.829 - ELEVATED WHITE BLOOD CELL COUNT, UNSPECIFIED Status: Acute Priority: Medium Current Visit: Yes Onset Date: 09/28/20 Problem Details: Normalized today Qualifiers: Leukocytosis type: bandemia Qualified Code(s): D72.825 - Bandemia (6) PVCs (premature ventricular contractions) SNOMED Code(s): 68861577 ICD Code: I49.3 - VENTRICULAR PREMATURE DEPOLARIZATION Status: Acute Priority: High Current Visit: Yes Onset Date: 09/28/20 Problem Details: Occasional couplets with mostly uniform PVCs initially, however no evidence of recurrence after conversion to normal sinus rhythm. Continue to observe closely. Consider event monitor depending on her clinical course. (7) Hyperlipidemia SNOMED Code(s): 67905225 ICD Code: E78.5 - HYPERLIPIDEMIA, UNSPECIFIED Status: Chronic Priority: Medium Current Visit: Yes Problem Details: Currently under therapy. Weight loss in moderation is advisable. Lipid panel today shows levels within good range. Qualifiers: Hyperlipidemia type: unspecified Qualified Code(s): E78.5 - Hyperlipidemia, unspecified (8) Hypertension SNOMED Code(s): 13517421 ICD Code: I10 - ESSENTIAL (PRIMARY) HYPERTENSION Status: Chronic Priority: Medium Current Visit: Yes Problem Details: stable during stay Qualifiers: Hypertension type: essential hypertension Qualified Code(s): I10 - Essential (primary) hypertension (9) Mixed anxiety depressive disorder SNOMED Code(s): 342134697 ICD Code: F41.8 - OTHER SPECIFIED ANXIETY DISORDERS Status: Chronic Priority: Medium Current Visit: Yes Problem Details: Stable by patient history (10) Osteoarthritis SNOMED Code(s): 548055236 ICD Code: M19.90 - UNSPECIFIED OSTEOARTHRITIS, UNSPECIFIED SITE Status: Chronic Priority: Medium Current Visit: Yes Problem Details: Stable by patient history. Qualifiers: Osteoarthritis location: multiple joints Osteoarthritis type: primary Qualified Code(s): M89.49 - Other hypertrophic osteoarthropathy, multiple sites - Patient Summary/Data Hospital Course: Patient remained in sinus rhythm once she initially converted from Afib. No chest pain or other acute complaints during stay. Did continue to have elevated pulse whenever she was active/up on her feet the first day. Cardiology contacted at [facility] as noted above and it was recommended that we increase her Toprol XL dose to 100mg daily. This appears to have been helpful with better rate control during activity. BPs stable. Plan at this time is to let patient go home. She will be continued on Cardizem and Toprol XL 100mg. To be scheduled for cardiac echo this week to evaluate her heart more thoroughly. Antiplatelet therapy to be initiated if needed pending results of echo. Also recommend Cardiolite stress test to be scheduled with . Precautions reviewed prior to discharge. To return to ER if she has any problems/new chest pain. - Patient Instructions Diet: Anti-Inflammatory (anti-inflammatory/lower carb diet recommended. ) Activity: As Tolerated Showering/Bathing: May Shower Other/Special Instructions: Dietary changes highly recommended as we discussed. Cardiac echo this week to make certain that heart is functioning well and no cl ots present within chambers this week. Cardiac stress test recommended with this week. Follow up with your primary care provider to discuss results of tests the following week. Return to ER if your symptoms return/other problems develop. Increase dose of Toprol XL. Start Cardizem. Check your blood pressures! Since we increased the Toprol and added the Cardizem for better rate control you may get low blood pressures. If that happens, stop taking the Cardizem and get in touch with your clinic. - Discharge Plan *PRESCRIPTION DRUG MONITORING PROGRAM REVIEWED*: Not Applicable *COPY OF PRESCRIPTION DRUG MONITORING REPORT IN PATIENT FAYE: Not Applicable Prescriptions/Med Rec: Diltiazem [Cardizem CD] 120 mg PO DAILY #30 cap.er Ubidecarenone [Coenzyme Q10] 100 mg PO DAILY #90 cap Metoprolol Succinate [Toprol XL] 25 mg PO DAILY #30 tab.er Home Medications: Home Meds Metoprolol Succinate [Toprol XL] 75 mg PO DAILY 02/20/14 [History] Mv,Calcium,Min/Iron/Folic/Vitk [Multi For Her Tablet] 1 each PO DAILY 02/20/14 [History] Cholecalciferol (Vitamin D3) [Vitamin D3] 1,000 units PO DAILY 06/18/16 [History] L.acidoph,Paracasei, B.lactis [Probiotic] 2 cap PO DAILY 06/18/16 [History] atorvaSTATin [Lipitor] 10 mg PO BEDTIME 06/18/16 [History] Lisinopril [Prinivil] 10 mg PO DAILY 06/19/16 [History] Calcium Carbonate [Calcium] 1,200 mg PO DAILY 07/27/18 [History] Exemestane 25 mg PO DAILY 09/28/20 [History] Diltiazem [Cardizem CD] 120 mg PO DAILY #30 cap.er 09/30/20 [Rx] MO/Pet,Wh/Phenylephrine/Shk Lv [Preparation H Oint] 0 gm RECTAL ASDIRECTED PRN tube 09/30/20 [Rx] Metoprolol Succinate [Toprol XL] 25 mg PO DAILY #30 tab.er 09/30/20 [Rx] Ubidecarenone [Coenzyme Q10] 100 mg PO DAILY #90 cap 09/30/20 [Rx] Patient Handouts: Atrial Fibrillation Forms: ED Department Discharge Referrals: PCP,Unknown [Primary Care Provider] - - Discharge Summary/Plan Comment DC Time >30 min.: No - General Info Date of Service: 09/30/20 Admission Dx/Problem (Free Text: Afib/RVR Subjective Update: Patient feels good today. No new complaints. No chest discomfort/palpitations Functional Status: Reports: Pain Controlled, Tolerating Diet, Ambulating, Urinating. Denies: New Symptoms - Review of Systems General: Reports: No Symptoms HEENT: Reports: No Symptoms Pulmonary: Reports: No Symptoms Cardiovascular: Reports: No Symptoms Gastrointestinal: Reports: No Symptoms Genitourinary: Reports: No Symptoms Musculoskeletal: Reports: Other (no acute changes from baseline) Skin: Reports: No Symptoms Neurological: Reports: No Symptoms Psychiatric: Reports: No Symptoms - Patient Data Vitals - Most Recent: Last Vital Signs Temp 36.7 C 09/30/20 08:00 Pulse 95 09/30/20 08:20 Resp 16 09/30/20 08:00 BP 143/93 H 09/30/20 08:20 Pulse Ox 94 L 09/30/20 08:00 Weight - Most Recent: 90.265 kg I&O - Last 24 hours: Intake & Output 09/29/20 09/30/20 09/30/20 22:59 06:59 14:59 Intake Total 7279 998 8948 Output Total 300 1500 500 Balance 760 -1000 560 Lab Results - Last 24 hrs: Laboratory Results - last 24 hr 09/30/20 09/30/20 09/30/20 Range/Units 07:35 07:35 07:35 WBC 9.2 (4.0-10.2) K/uL RBC 4.28 (3.77-5.09) M/uL Hgb 13.0 (11.7-15.5) g/dL Hct 39.8 (34.0-46.0) % MCV 93.0 (84.0-98.0) fL MCH 30.4 (28.2-33.3) pg MCHC 32.7 (31.7-36.0) g/dL RDW 14.2 H (11.2-14.1) % Plt Count 339 (150-350) K/uL Neut % (Auto) 70.3 (45.0-80.0) % Lymph % (Auto) 19.6 (10.0-50.0) % [place] % (Auto) 8.7 (2.0-14.0) % Eos % (Auto) 1.2 (0.0-5.0) % Baso % (Auto) 0.2 (0.0-2.0) % Neut # (Auto) 6.47 (1.40-7.00) K/uL Lymph # (Auto) 1.80 (0.50-3.50) K/uL [place] # (Auto) 0.80 (0.00-1.00) K/uL Eos # (Auto) 0.11 (0.00-0.50) K/uL Baso # (Auto) 0.02 (0.00-0.20) K/uL Sodium 137 (136-145) mmol/L Potassium 4.0 (3.5-5.1) mmol/L Chloride 102 (98-107) mmol/L Carbon Dioxide 25.4 (21.0-32.0) mmol/L BUN 15 (7-18) mg/dL Creatinine 0.77 (0.51-1.17) mg/dL Est Cr Clr Drug Dosing 48.13 mL/min Estimated GFR (MDRD) > 60 mL/min Glucose 146 H (74-106) mg/dL Lactic Acid 2.1 H (0.4-2.0) mmol/L Calcium 9.4 (8.5-10.1) mg/dL Troponin I 0.000 (0.000-0.056) ng/mL [facility] Results - Last 24 hrs: Microbiology 09/28/20 12:15 Urine Culture - Final Urine, Clean Catch MIXED POSITIVE HILARY DAY 2 09/28/20 18:42 Stool Occult Blood (CRISTA) - Final Stool / Feces NEGATIVE OCCULT BLOOD REFERENCE RANGE: NEGATIVE Med Orders - Current: Current Medications Acetaminophen (Tylenol) 650 mg PO Q4H PRN PRN Reason: Pain Atorvastatin Calcium (Lipitor) 10 mg PO BEDTIME [facility] Last Admin: 09/29/20 18:59 Dose: 10 mg Documented by: Calcium Carbonate/Glycine (Tums Extra Strength) 1,500 mg PO DAILY [facility] Last Admin: 09/30/20 07:48 Dose: 1,500 mg Documented by: Cholecalciferol (Vitamin D3) 25 mcg PO DAILY [facility] Last Admin: 09/30/20 07:48 Dose: 25 mcg Documented by: Coenzyme Q10 (Coenzyme Q10) 100 mg PO DAILY [facility] Last Admin: 09/30/20 07:48 Dose: 100 mg Documented by: Enoxaparin Sodium (Lovenox) 90 mg SUBCUT Q24H [facility] Last Admin: 09/30/20 11:58 Dose: 90 mg Documented by: Lisinopril (Prinivil) 10 mg PO DAILY [facility] Last Admin: 09/30/20 07:51 Dose: 10 mg Documented by: Metoprolol Succinate (Toprol Xl) 75 mg PO DAILY [facility] Last Admin: 09/30/20 07:53 Dose: 75 mg Documented by: Metoprolol Succinate (Toprol Xl) 25 mg PO DAILY [facility] Last Admin: 09/30/20 08:20 Dose: 25 mg Documented by: Exemestane 25 Mg * (*Own Med) 0 mg PO DAILY [facility] Last Admin: 09/30/20 07:47 Dose: 25 mg Documented by: Phenyleph/Shark Oil/Min Oil/Petrol (Preparation H Oint) 0 gm RECTAL ASDIRECTED PRN PRN Reason: Hemorrhoids Last Admin: 09/29/20 09:39 Dose: 1 applic Documented by: Sodium Chloride (Saline Flush) 10 ml FLUSH ASDIRECTED PRN PRN Reason: Keep Vein Open Sodium Chloride (Saline Flush) 10 ml FLUSH Q12HR PRN PRN Reason: Keep Vein Open Temazepam (Restoril) 15 mg PO BEDTIME PRN PRN Reason: Insomnia Discontinued Medications Adenosine (Adenocard) 6 mg IVPUSH NOW ONE Stop: 09/28/20 09:52 Last Admin: 09/28/20 09:54 Dose: 6 mg Documented by: Adenosine (Adenocard) 12 mg IVPUSH NOW ONE Stop: 09/28/20 09:57 Last Admin: 09/28/20 09:58 Dose: 12 mg Documented by: Aspirin (Aspirin) 324 mg CHEW ONETIME ONE Stop: 09/28/20 09:51 Last Admin: 09/28/20 10:01 Dose: 324 mg Documented by: Digoxin (Lanoxin) 250 mcg IVPUSH ONETIME ONE Stop: 09/28/20 10:25 Last Admin: 09/28/20 10:27 Dose: 250 mcg Documented by: Diltiazem HCl (Diltiazem) 20 mg IVPUSH ONETIME ONE Stop: 09/28/20 10:00 Last Admin: 09/28/20 10:02 Dose: 20 mg Documented by: Famotidine (Pepcid) 40 mg IVPUSH ONETIME ONE Stop: 09/28/20 09:51 Last Admin: 09/28/20 10:07 Dose: 40 mg Documented by: Lactated Ringer's (Ringers, Lactated) 1,000 mls @ 999 mls/hr IV .BOLUS ONE Stop: 09/28/20 12:25 Last Admin: 09/28/20 11:29 Dose: 999 mls/hr Documented by: Lactated Ringer's (Ringers, Lactated) 1,000 mls @ 100 mls/hr IV ASDIRECTED [facility] Last Admin: 09/29/20 04:09 Dose: 100 mls/hr Documented by: Magnesium Sulfate/Dextrose 1 (gm/ Premix) 100 mls @ 100 mls/hr IV ONETIME ONE Stop: 09/29/20 15:09 Last Admin: 09/29/20 15:00 Dose: 100 mls/hr Documented by: Iopamidol (Isovue-370 (76%)) 100 ml IVPUSH ONETIME STA Stop: 09/28/20 11:45 Last Admin: 09/28/20 12:11 Dose: 100 ml Documented by: Iopamidol (Isovue-370 (76%)) Confirm Administered Dose 100 ml .ROUTE .STK-MED ONE Stop: 09/28/20 11:53 Last Admin: 09/28/20 11:30 Dose: Not Given Documented by: Metoprolol Succinate (Toprol Xl) 25 mg PO ONETIME ONE Stop: 09/29/20 13:22 Last Admin: 09/29/20 13:57 Dose: 25 mg Documented by: Metoprolol Tartrate (Lopressor) 2.5 mg IVPUSH ONETIME ONE Stop: 09/28/20 09:51 Last Admin: 09/28/20 10:17 Dose: 2.5 mg Documented by: Metoprolol Tartrate (Lopressor) 2.5 mg IVPUSH ONETIME ONE Stop: 09/28/20 10:36 Last Admin: 09/28/20 10:37 Dose: 2.5 mg Documented by: Metoprolol Tartrate (Lopressor) 25 mg PO ONETIME ONE Stop: 09/28/20 10:44 Last Admin: 09/28/20 10:47 Dose: 25 mg Documented by: Ticagrelor (Brilinta) 180 mg PO ONETIME ONE Stop: 09/28/20 09:51 Last Admin: 09/28/20 10:06 Dose: 180 mg Documented by: - Exam Quality Assessment: Reports: DVT Prophylaxis General: Reports: Alert, Oriented, Cooperative, No Acute Distress HEENT: Reports: Pupils Equal, Pupils Reactive, EOMI Neck: Reports: Supple Lungs: Reports: Clear to Auscultation, Normal Respiratory Effort Cardiovascular: Reports: Regular Rate, Regular Rhythm GI/Abdominal Exam: Soft, Non-Tender (Female) Exam: Deferred Rectal (Female) Exam: Deferred Back Exam: Denies: Muscle Spasm Extremities: Normal Range of Motion, Normal Capillary Refill Skin: Reports: Warm, Dry Neurological: Reports: No New Focal Deficit Psy/Mental Status: Reports: Alert, Normal Affect, Normal Mood
[2020-09-30 12:13] VITALS: BP 155/90; PULSE 86
== END 2020-09-30 13:06 | disposition home or self-care (01) ==
LOC: LL.ED 09:45 → LL.MS 11:13
PROVIDERS: ADMIT Family Medicine; ATTEND Family Medicine
DX: I48.92 Unspecified atrial flutter (principal); I48.91 Unspecified atrial fibrillation; E78.00 Pure hypercholesterolemia, unspecified; I10 Essential (primary) hypertension; G62.9 Polyneuropathy, unspecified; E66.9 Obesity, unspecified; I49.3 Ventricular premature depolarization; D72.825 Bandemia; R79.89 Other specified abnormal findings of blood chemistry; R73.9 Hyperglycemia, unspecified; Z79.899 Other long term (current) drug therapy; Z86.010 Personal history of colon polyps
CPT/HCPCS: 36415; 71045; 71275; 74022; 80048; 80053; 80061; 81001; 82272; 82550; 82553; 83036; 83605; 83735; 83880; 84443; 84484; 84550; 85025; 85379; 85610; 85730; 87086; 87338; 93005; 96365; 96372; 96374; 96375; 99285-25; A9270-GY; G0378; J0153; J1160; J1650; J3475; J3490; J7120; Q9967

== ENCOUNTER 2021-06-24 09:58 | Day surgery (SDC) | payer MEDICARE, BC ==
[~2021-06-24 09:58] MED LIST: Midazolam 1 MG/ML 2 ML SDV ONE; Propofol 200 MG/20 ML SDV ONE; Sodium Chloride 0.9% 10 ML Syringe FLUSH PRN
[2021-06-24] MEDS ORDERED: Lactated Ringers 1,000 ML IV SCH (10:30)
--- NOTE | 2021-06-24 10:48 | PCM.PN ---
- General Info Date of Service: 06/24/21 - Review of Systems Systems Review Comment:: 71-year-old female here for colonoscopy. She has a history of colon polyps. She denies any recent changes in bowel pattern. Her recent history and physical is reviewed and no significant changes are noted. I have discussed the proposed colonoscopy with the patient. Risks reviewed. She agrees to proceed. - Patient Data Vitals - Most Recent: Last Vital Signs Temp 98.8 F 06/24/21 10:24 Pulse 90 06/24/21 10:24 Resp 18 06/24/21 10:24 BP 139/67 06/24/21 10:24 Pulse Ox 100 06/24/21 10:24 Weight - Most Recent: 65.771 kg Med Orders - Current: Current Medications Lactated Ringer's (Ringers, Lactated) 1,000 mls @ 125 mls/hr IV ASDIRECTED [facility]ONY Last Admin: 06/24/21 10:33 Dose: 125 mls/hr Documented by: Sodium Chloride (Sodium Chloride 0.9% 10 Ml Syringe) 10 ml FLUSH ASDIRECTED PRN PRN Reason: Keep Vein Open Discontinued Medications Midazolam HCl (Midazolam 1 Mg/Ml 2 Ml Sdv) Confirm Administered Dose 2 mg .ROUTE .STK-MED ONE Stop: 06/24/21 07:41 Propofol (Propofol 200 Mg/20 Ml Sdv) Confirm Administered Dose 400 mg .ROUTE .STK-MED ONE Stop: 06/24/21 07:41 Sepsis Event Note - Focused Exam Vital Signs: Vital Signs Temp Pulse Resp BP Pulse Ox 06/24/21 10:24 98.8 F 90 18 139/67 100 - Problem List Review Problem List Initiated/Reviewed/Updated: Yes - Assessment Assessment:: History of colon polyps - Plan Plan:: Colonoscopy
[2021-06-24] MEDS ORDERED: Propofol 200 MG/20 ML SDV ONE (10:49)
[2021-06-24] MEDS ORDERED: Midazolam 1 MG/ML 2 ML SDV ONE (10:49)
--- NOTE | 2021-06-24 11:47 | PCM.OPNOTE ---
- General Post-Op/Procedure Note Date of Surgery/Procedure: 06/24/21 Operative Procedure(s): Colonoscopy Findings: Normal-appearing although tortuous colon Pre Op Diagnosis: History of colon polyps Post-Op Diagnosis: Normal colon Anesthesia Technique: MAC Primary Surgeon: Conrado Thurston Pathology: none EBL in mLs: 0 Complications: None Condition: Good
[2021-06-24 15:56] VITALS: BP 104/68; PULSE 78
--- NOTE | 2021-06-24 20:51 | OR ---
Date of Procedure: 06/24/2021 PREOPERATIVE DIAGNOSES: History of colon polyps, personal history of breast cancer. POSTOPERATIVE DIAGNOSIS: Normal colon. OPERATIONS PERFORMED: Colonoscopy. INDICATIONS FOR SURGERY: This 71-year-old female has a known history of breast cancer. She also has had colon polyps in the past. She is referred for colonoscopy. FINDINGS: The patient's colon appears normal today. No polyps or other abnormalities were seen. The colon is somewhat tortuous with significant looping of the colon. DESCRIPTION OF PROCEDURE: The patient was taken to the operating room. She was given intravenous sedation, and with her in the left lateral decubitus position, digital rectal exam was performed showing no rectal masses. The Olympus colonoscope was inserted into the rectum. Retroflexed examination of the rectal canal was performed. The scope was then carefully advanced under direct visualization through the entire length of the colon until the cecum was reached. The colon was somewhat tortuous and reaching the cecum did require careful persistent effort and hand pressure, but was eventually able to be accomplished. Cecal identity was confirmed by noting the normal internal cecal anatomy including the ileocecal valve. After examining the cecum, the scope was slowly withdrawn sequentially re-examining the colonic segments until the entire colon and rectum had been fully examined. The scope was removed and the patient was taken from the operating room in satisfactory condition. ESTIMATED BLOOD LOSS: Zero. COMPLICATIONS: None. PROGNOSIS: Good. ELA Thurston MD /[id number]
== END 2021-06-24 12:25 | disposition home or self-care (01) ==
LOC: LL.SDS 09:58
PROVIDERS: ATTEND Surgery
DX: Z12.11 Encounter for screening for malignant neoplasm of colon (principal); L23.9 Allergic contact dermatitis, unspecified cause; I10 Essential (primary) hypertension; E78.5 Hyperlipidemia, unspecified; I48.91 Unspecified atrial fibrillation; G47.33 Obstructive sleep apnea (adult) (pediatric); Z79.899 Other long term (current) drug therapy; Z85.3 Personal history of malignant neoplasm of breast; Z86.010 Personal history of colon polyps; Z98.890 Other specified postprocedural states; Z79.01 Long term (current) use of anticoagulants
CPT/HCPCS: G0105; J2250; J2704; J7120

== ENCOUNTER 2023-07-23 07:58 | Day surgery (SDC) | payer BC, MEDICARE ==
[2023-07-23] MEDS ORDERED: Sodium Chloride 0.9% 10 ML Syringe FLUSH PRN (08:00)
[2023-07-23] MEDS: Lactated Ringers 1,000 ML IV SCH (08:02)
[2023-07-23] MEDS ORDERED: Propofol 200 MG/20 ML SDV ONE (08:22)
[2023-07-23] MEDS ORDERED: fentaNYL 100 MCG/2 ML SDV ONE (08:22)
[2023-07-23] MEDS ORDERED: Midazolam 1 MG/ML 2 ML SDV ONE (08:22)
[2023-07-23] MEDS ORDERED: Ondansetron 4 MG/2 ML SDV IVPUSH ONE (09:00)
[2023-07-23] MEDS ORDERED: ceFAZolin 1 GM Vial IVPUSH ONE (09:00)
[2023-07-23] MEDS: Lidocaine 2% with EPINEPHrine 1:100,000 20 ML MDV INJECT ONE (09:35)
[2023-07-23] MEDS: Bupivacaine 0.5% 10 ML SDV INJECT ONE (09:36)
[2023-07-23 10:52] VITALS: BP 131/62; PULSE 85
== END 2023-07-23 11:15 | disposition home or self-care (01) ==
LOC: LL.SDS 07:58
PROVIDERS: ATTEND Surgery
DX: K64.8 Other hemorrhoids (principal); K64.4 Residual hemorrhoidal skin tags; I86.8 Varicose veins of other specified sites; I10 Essential (primary) hypertension; I48.0 Paroxysmal atrial fibrillation; E78.5 Hyperlipidemia, unspecified; Z79.01 Long term (current) use of anticoagulants; Z79.899 Other long term (current) drug therapy
CPT/HCPCS: 46260; J3490; J7120; J0690; J2250; J2405; J2704; J3010

== ENCOUNTER 2023-08-18 23:15 | Emergency (ER) | payer MEDICARE ==
[2023-08-18] MEDS ORDERED: Sodium Chloride 0.9% 10 ML Syringe FLUSH PRN (23:29)
[2023-08-18] MEDS ORDERED: Diltiazem 25 MG/5 ML SDV IVPUSH ONE (23:30)
[2023-08-18 23:40] LABS: BASOPHILS ABSOLUTE AUTO 0.03 K/uL (0.00-0.20); BASOPHILS PERCENT AUTO 0.3 % (0.0-2.0); EOSINOPHILS ABSOLUTE AUTO 0.06 K/uL (0.00-0.50); EOSINOPHILS PERCENT AUTO 0.6 % (0.0-5.0); HEMATOCRIT 41.1 % (34.0-46.0); HEMOGLOBIN 13.8 g/dL (11.7-15.5); LYMPHOCYTES ABSOLUTE AUTO 2.52 K/uL (0.50-3.50); LYMPHOCYTES PERCENT AUTO 25.5 % (10.0-50.0); MEAN CORPUSCULAR HEMOGLOBIN 30.9 pg (28.2-33.3); MEAN CORPUSCULAR HGB CONC 33.6 g/dL (31.7-36.0); MEAN CORPUSCULAR VOLUME 92.2 fL (84.0-98.0); MONOCYTES ABSOLUTE AUTO 0.97 K/uL (0.00-1.00); MONOCYTES PERCENT AUTO 9.8 % (2.0-14.0); NEUTROPHILS ABSOLUTE AUTO 6.29 K/uL (1.40-7.00); NEUTROPHILS PERCENT AUTO 63.8 % (45.0-80.0); PLATELET COUNT,PLT 359 K/uL (150-350); RED BLOOD CELL COUNT 4.46 M/uL (3.77-5.09); RED CELL DISTRIBUTION WIDTH 13.8 % (11.2-14.1); WHITE BLOOD CELL COUNT,WBC 9.9 K/uL (4.0-10.2)
[2023-08-18] MEDS ORDERED: Diltiazem IR 60 MG Tab PO ONE (23:53)
[2023-08-19 00:06] LABS: ANION GAP 12.9 meq/L (7-15); BILIRUBIN TOTAL 0.4 mg/dL (0.2-1.0); CALCIUM 9.6 mg/dL (8.5-10.1); CARBON DIOXIDE,CO2 26.1 mmol/L (21.0-32.0); CREATININE 1.23 mg/dL (0.51-1.17); EST CRCL DRUG DOSING (CG) 28.82 mL/min; MAGNESIUM 2.1 mg/dL (1.8-2.4); POTASSIUM,K 3.8 mmol/L (3.5-5.1); PROTEIN TOTAL,TP 8.6 g/dL (6.4-8.2)
[2023-08-19 00:09] LABS: APPEARANCE,URINE CLEAR; BILIRUBIN,URINE NEGATIVE (NEGATIVE); GLUCOSE,URINE NEGATIVE (NEGATIVE); KETONES,URINE NEGATIVE (NEGATIVE); LEUKOCYTE ESTERASE,URINE NEGATIVE (NEGATIVE); NITRITE,URINE NEGATIVE (NEGATIVE); OCCULT BLOOD,URINE TRACE-INTACT (NEGATIVE); PROTEIN,URINE NEGATIVE (NEGATIVE); UROBILINOGEN,URINE 0.2 E.U./dL (0.2-1.0)
[2023-08-19 00:10] LABS: COLOR,URINE STRAW
[2023-08-19] MEDS ORDERED: Sodium Chloride 0.9% 1,000 ML IV ONE (00:10)
[2023-08-19 00:22] LABS: BACTERIA,URINE NOT SEEN /HPF (NONE TO FEW); EPITHELIAL CELLS,URINE OCCASIONAL /LPF; MUCUS,URINE NOT SEEN /LPF (NEGATIVE); RBC,URINE 0-5 /HPF; WBC,URINE 0-5 /HPF
[2023-08-19 01:40] VITALS: BP 151/82; PULSE 82
== END 2023-08-19 01:25 | disposition home or self-care (01) ==
LOC: LL.ED 23:15
DX: I47.10 Supraventricular tachycardia, unspecified (principal); R79.89 Other specified abnormal findings of blood chemistry; I10 Essential (primary) hypertension; E78.00 Pure hypercholesterolemia, unspecified; E66.9 Obesity, unspecified; Z79.01 Long term (current) use of anticoagulants; Z79.899 Other long term (current) drug therapy; Z91.09 Other allergy status, other than to drugs and biological substances; Z68.30 Body mass index [BMI] 30.0-30.9, adult
CPT/HCPCS: 36415; 71045; 80053; 81001; 83605; 83735; 83880; 84484; 85025; 93005; 96361; 96374; 99285-25; A9270-GY; J3490; J7030

== ENCOUNTER 2024-07-27 09:25 | Emergency (ER) | payer MEDICARE ==
[2024-07-27 10:06] LABS: BASOPHILS ABSOLUTE AUTO 0.03 K/uL (0.00-0.20); BASOPHILS PERCENT AUTO 0.3 % (0.0-2.0); EOSINOPHILS ABSOLUTE AUTO 0.05 K/uL (0.00-0.50); EOSINOPHILS PERCENT AUTO 0.5 % (0.0-5.0); HEMATOCRIT 39.9 % (34.0-46.0); HEMOGLOBIN 13.1 g/dL (11.7-15.5); IMMATURE GRAN ABSOLUTE AUTO 0.05 10^3/uL (0.00-0.50); IMMATURE GRAN PERCENT AUTO 0.5 % (0.0-5.0); LYMPHOCYTES ABSOLUTE AUTO 1.57 K/uL (0.50-3.50); LYMPHOCYTES PERCENT AUTO 14.3 % (10.0-50.0); MEAN CORPUSCULAR HEMOGLOBIN 30.4 pg (28.2-33.3); MEAN CORPUSCULAR HGB CONC 32.8 g/dL (31.7-36.0); MEAN CORPUSCULAR VOLUME 92.6 fL (84.0-98.0); MONOCYTES ABSOLUTE AUTO 1.22 K/uL (0.00-1.00); MONOCYTES PERCENT AUTO 11.1 % (2.0-14.0); NEUTROPHILS ABSOLUTE AUTO 8.03 K/uL (1.40-7.00); NEUTROPHILS PERCENT AUTO 73.3 % (45.0-80.0); PLATELET COUNT,PLT 332 K/uL (150-350); RED BLOOD CELL COUNT 4.31 M/uL (3.77-5.09); RED CELL DISTRIBUTION WIDTH 13.8 % (11.2-14.1)
[2024-07-27 10:35] LABS: ALANINE AMINOTRANSFERASE,ALT 19 U/L (12-78); ALBUMIN 3.4 g/dL (3.4-5.0); ALKALINE PHOSPHATASE 100 IU/L (46-116); ANION GAP 7.5 meq/L (7-15); ASPARTATE AMNIOTRANSFERASE,AST 13 U/L (15-37); BILIRUBIN TOTAL 0.3 mg/dL (0.2-1.0); BLOOD UREA NITROGEN,BUN 19 mg/dL (7-18); CALCIUM 9.2 mg/dL (8.5-10.1); CARBON DIOXIDE,CO2 27.5 mmol/L (21.0-32.0); CHLORIDE,CL 106 mmol/L (98-107); CREATININE 0.86 mg/dL (0.51-1.17); GLUCOSE RANDOM 110 mg/dL (70-99); MAGNESIUM 2.2 mg/dL (1.8-2.4); POTASSIUM,K 4.1 mmol/L (3.5-5.1); PRO B-TYPE NATRIUR PEPT,BNPPRO 240 pg/mL (0-125); SODIUM,NA 141 mmol/L (136-145)
[2024-07-27 10:36] LABS: ESTIMATED GFR 70 mL/min (>=60)
[2024-07-27 11:32] VITALS: BP 128/85; PULSE 83
== END 2024-07-27 11:25 | disposition home or self-care (01) ==
LOC: LL.ED 09:25
DX: R07.89 Other chest pain (principal); I10 Essential (primary) hypertension; E78.00 Pure hypercholesterolemia, unspecified; E66.9 Obesity, unspecified; Z88.8 Allergy status to other drugs, medicaments and biological substances; Z68.35 Body mass index [BMI] 35.0-35.9, adult
CPT/HCPCS: 36415; 71045; 80053; 83605; 83735; 83880; 84484; 85025; 85379; 93005; 93010; 99284; 99285

== ENCOUNTER 2025-01-21 08:05 | Emergency (ER) | payer MEDICARE ==
[2025-01-21 08:15] VITALS: BP 144/77; PULSE 89
[2025-01-21] MEDS: BETAMETHASONE TOP ONE (08:53)
[2025-01-21] MEDS: [UNRECOGNIZED DRUG - OTHER] TOP ONE (08:53)
[2025-01-21] MEDS: Fluconazole 100 MG Tab PO ONE (08:53)
== END 2025-01-21 08:55 | disposition home or self-care (01) ==
LOC: LL.ED 08:05
DX: L30.4 Erythema intertrigo (principal); I10 Essential (primary) hypertension; E78.00 Pure hypercholesterolemia, unspecified; K21.9 Gastro-esophageal reflux disease without esophagitis; E66.9 Obesity, unspecified; Z79.899 Other long term (current) drug therapy; Z91.048 Other nonmedicinal substance allergy status
CPT/HCPCS: 99283; A9270-GY